=== PATIENT | male | born 1955 | race Caucasian/White ===

== ENCOUNTER → 2018-11-13 | Outpatient (CLI) | payer MEDICARE | LOC: RAD 14:41 | PROVIDERS: ATTEND Family Medicine | DX: R42 Dizziness and giddiness (principal) | CPT/HCPCS: 93880 ==

== ENCOUNTER → 2019-01-14 | Outpatient (CLI) | payer MEDICARE ==
[~2019-01-14] MED LIST: METFORMIN HCL500 MG PO
--- NOTE | 2019-01-14 12:04 | Diagnostic Imaging Report ---
MRI of the left shoulder without contrast. History: Shoulder pain. Rotator cuff tear. Decreased range of motion. Pain not responding to conservative management. Comparison: None Technique: Coronal PD FS, sagital PD FS, and axial PD and PD FS. Findings: Rotator cuff: There is rotator cuff tendinosis with a small full-thickness tear involving the anterior fibers of the supraspinatus tendon at the humeral insertion site. This is best seen on sagittal image 5 and coronal image 11. There is minimal retraction of the torn fibers and no muscle atrophy. Additionally, there is infraspinatus and subscapularis tendinosis. The teres minor tendon is intact. There is reactive change in the superior humerus. Osseous acromion complex: Type II acromion with mild lateral downsloping. Moderate degenerative arthrosis at the acromioclavicular joint with undersurface spurring and narrowing of the supraspinatus tendon outlet. Glenohumeral joint: Degeneration and fraying of the labrum. The articular cartilage surfaces are intact. The humeral head is well-seated in the glenoid fossa. Biceps tendon: The biceps tendon is intact. Other findings: Negative for muscle denervation or osseous fracture. Impression: Rotator cuff tendinosis with a small full-thickness tear involving the anterior fibers of the supraspinatus tendon at the humeral insertion site. Moderate degenerative arthrosis at the acromioclavicular joint with undersurface spurring and narrowing of the supraspinatus tendon outlet Signed by: Dr. Brien Castaneda M.D. on 01/14/2019 12:00 PM
== END ==
LOC: MRI 09:48
PROVIDERS: ATTEND Family Medicine
DX: M75.102 Unspecified rotator cuff tear or rupture of left shoulder, not specified as traumatic (principal)

== ENCOUNTER → 2019-01-15 | Day surgery (SDC) | payer MEDICARE ==
[~2019-01-15] MED LIST changes: +DEXAMETHASONE SOD PHOS INJ 4 MG/ML VIAL ONE; +IOPAMIDOL 610MG/1ML 300 MG/ML VIAL IV ONE; +LEVOFLOXACIN 500MG/D5W 100ML 100 ML IV ONE; +LIDOCAINE HCL 2% LOCAL INJ 5 ML SDV VIAL INJ ONE; +ONDANSETRON HCL INJ 2MG/ML 2ML 2 MG/ML VIAL ONE; +PROPOFOL IV EMULSION 10 MG/ML 20 ML VIAL ONE; +SEVOFLURANE INHAL SOLN 250 ML PEN BTL ONE
[2019-01-15 14:05] VITALS: BP 122/79
--- NOTE | 2019-01-16 11:48 | Operative Report ---
DATE OF PROCEDURE: 01/15/2019 SURGEON: Richar Hollis MD PREOPERATIVE DIAGNOSES: 1. Benign prostatic hypertrophy. 2. Overactive bladder. 3. History of multiple recurrent kidney stones. 4. Nocturia 5 to 6 times. POSTOPERATIVE DIAGNOSES: 1. Benign prostatic hypertrophy. 2. Overactive bladder. 3. History of multiple recurrent kidney stones. 4. Nocturia 5 to 6 times. OPERATIONS: Cystourethroscopy and bilateral retrograde pyelogram. ANESTHESIA: General. DESCRIPTION OF PROCEDURE: Mr. Noble is a 63-year-old male, who presented with chief complaints of frequency, urgency, and nocturia. He also complained of weak stream. Rectal exam showed the prostate gland to be about 40 g, smooth, firm, and benign. His PSA was normal. This patient was placed on the table in the lithotomy position and was prepped and draped in a sterile manner after satisfactory anesthesia. A #23-Swedish cystoscope was used and cystourethroscopy was performed and it was noted that the urethra was normal. The prostatic urethra was about 2.5 cm long, bilobar, partially occlusive. Cystoscopy was then performed using both right-angle and Foroblique lens and the bladder mucosa was normal. Both ureteral orifices were seen and were within normal position, configuration, efflux. The bladder wall was mildly trabeculated. Right retrograde pyelogram was then performed using #8 bulb tip. Urethral catheter inserted at the right ureteral orifice and 5 mL of contrast material was injected. The retrograde performed was normal. Left retrograde pyelogram was performed similarly and was normal. The bladder was drained. Cystoscope removed and the patient was taken to the recovery room in satisfactory condition. Plan for this patient is to be placed on Cipro 250 mg one twice a day for one week. Ultracet tablet one every 8 hours p.r.n. and was given 15. Flomax 0.4 mg one every night for three months. He is to return to the office in one month. Richar Hollis MD MA/LAUREN /[id number]
== END | disposition home or self-care (01) ==
LOC: OR 10:17
PROVIDERS: ATTEND Specialist
DX: N40.1 Benign prostatic hyperplasia with lower urinary tract symptoms (principal); R35.0 Frequency of micturition; R39.12 Poor urinary stream; R35.1 Nocturia; R39.15 Urgency of urination; N32.81 Overactive bladder; R00.1 Bradycardia, unspecified; N32.89 Other specified disorders of bladder; E11.9 Type 2 diabetes mellitus without complications; G47.30 Sleep apnea, unspecified; I44.0 Atrioventricular block, first degree; Z88.6 Allergy status to analgesic agent; Z88.1 Allergy status to other antibiotic agents; Z79.84 Long term (current) use of oral hypoglycemic drugs; Z87.442 Personal history of urinary calculi
CPT/HCPCS: 36415; 52005; 74420; 82948; 93005; J1100; J1956; J2001; J2405; J2704; Q9967

== ENCOUNTER 2021-10-07 18:50 | Emergency (ER) | payer MEDICARE ==
[~2021-10-07] VITALS: Ht 167.6 cm; Wt 81.6 kg
[~2021-10-07 18:50] MED LIST changes: -DEXAMETHASONE SOD PHOS INJ 4 MG/ML VIAL ONE; -IOPAMIDOL 610MG/1ML 300 MG/ML VIAL IV ONE; -LEVOFLOXACIN 500MG/D5W 100ML 100 ML IV ONE; -LIDOCAINE HCL 2% LOCAL INJ 5 ML SDV VIAL INJ ONE; -ONDANSETRON HCL INJ 2MG/ML 2ML 2 MG/ML VIAL ONE; -PROPOFOL IV EMULSION 10 MG/ML 20 ML VIAL ONE; -SEVOFLURANE INHAL SOLN 250 ML PEN BTL ONE
[2021-10-07] MEDS ORDERED: ONDANSETRON HCL INJ 2MG/ML 2ML 2 MG/ML VIAL IV STA (19:20)
[2021-10-07] MEDS ORDERED: KETOROLAC TROMETHAMINE 30 MG/ML VIAL ONE (19:29)
[2021-10-07] MEDS ORDERED: KETOROLAC TROMETHAMINE 30 MG/ML VIAL IV ONE (19:30)
[2021-10-07] MEDS ORDERED: ONDANSETRON HCL INJ 2MG/ML 2ML 2 MG/ML VIAL ONE (19:31)
[2021-10-07 19:32] LABS: BASOPHILS # (AUTO) 0.1 (0.0-0.1); BASOPHILS % 0.9 % (0.0-1.0); EOSINOPHILS # (AUTO) 0.5 (0.0-0.4); EOSINOPHILS % 5.4 % (0.0-6.0); HEMATOCRIT 43.7 % (38.2-49.6); HEMOGLOBIN 14.5 g/dL (14.0-18.0); LYMPHOCYTES # (AUTO) 2.1 (1.0-3.2); MEAN CORPUSCULAR HEMOGLOBIN 30.8 pg (28-32); MEAN CORPUSCULAR HGB CONC 33.2 g/dL (31-35); MEAN CORPUSCULAR VOLUME 92.8 fL (81-99); MONOCYTES # (AUTO) 0.8 (0.2-0.8); MONOCYTES % 9.3 % (4.4-11.3); PLATELET COUNT 224 x10e3/uL (140-360); RED BLOOD COUNT 4.71 x10e6/uL (4.3-5.7); RED CELL DISTRIBUTION WIDTH 12.2 % (11.7-14.4)
[2021-10-07 19:50] LABS: CLARITY,URINE CLEAR (CLEAR); COLOR,URINE YELLOW (YELLOW); LEUKOCYTE ESTERASE ,URINE NEGATIVE (NEGATIVE); NITRITE,URINE NEGATIVE (NEGATIVE)
[2021-10-07 19:51] LABS: KETONES,URINE NEGATIVE (NEGATIVE); PROTEIN,URINE DIPSTICK NEGATIVE (NEGATIVE); URINE UROBILINOGEN 0.2 mg/dL (0.2 - 1)
[2021-10-07 19:55] LABS: RBC,URINE 0-5 /HPF (0-5); WBC,URINE (MAN) 0-5 /HPF (0-5)
[2021-10-07 19:58] LABS: CALCIUM 9.3 mg/dL (8.4-10.2); CREATININE, SERUM 1.11 mg/dL (0.72-1.25)
== END 2021-10-07 21:45 | disposition home or self-care (01) ==
LOC: ER 19:12
DX: R10.9 Unspecified abdominal pain (principal); N20.0 Calculus of kidney; K57.90 Diverticulosis of intestine, part unspecified, without perforation or abscess without bleeding; E11.9 Type 2 diabetes mellitus without complications
CPT/HCPCS: 36415; 74176; 80048; 81001; 85025; 99284; J1885; J2405